=== PATIENT | female | born 1990 | race Caucasian/White ===

== ENCOUNTER 2025-01-07 09:56 | Outpatient (AMB) | payer OTHER, SELFPAY ==
--- NOTE | 2025-01-07 09:57 | A.OFFPC_ITS ---
Vital Signs 01/07/25 10:14 Height 5 ft 6 in Weight 187 lb 6 oz BMI 30.2 BP 118/66 Blood Pressure Location Rt brachial Position Sitting Respiration 12 Pulse 72 Pulse Source Pulse Oximeter Temp 97.1 F Temp Source Oral Pulse Oximetry (%) 99 Oxygen Delivery Method Room Air Intake Visit Reasons: est care/med refill Intake Note: new patient to establish care and patient also needs refill on meds. Stem Crusher Required: No Allergies ibuprofen [From Motrin] Allergy (Severe, Verified 01/07/25 10:28) Rash Medication List - Last Reconciled 01/07/25 by Stefanie Artis, [facility]- escitalopram oxalate mg PO DAILY lorazepam mg PO PRN tirzepatide (weight loss) (Zepbound) 2.5 mg subcut QWEEK Tobacco use date assessed: 01/07/25 Dental Screening Dental Screen Date: 01/07/25 Did you have a dental visit in the last 12 months?: Yes Did you have a dental problem in the last 6 months where you did not have access to dental care?: No Was dental information given to patient?: Patient has dentist HPI HPI Comments History of Present Illness Details 34 y/o f with obesity, LUDWIG, family hx of colon ca (Mgm), marijuana use surgery: nose surgery age 8 - mole removed family hx:mgm colon ca, dad complication of surgery; paternal grand parents do not know cause; denies DM or CVD social: 2 children, age 8 and 4, lives w/ and kids; home preschool Health Maintenance: PAP about 2 years , referred to [facility] phlebotomy services technician Tdap 2017 Flu declined Specialists: None History of Present Illness - The patient is a 34-year-old female pr esenting as a new patient, to [facility] care, for a CPE & mgmt of chronic conditions Previous PCP rohan - no records avail. - Diagnosed with anxiety and depression; medications include escitalopram and lorazepam, improving her condition. Does not have a counselor. Does not think this would be helpful. sparing ativan. meterman reviewed. - Obesity previously treated with Wegovy , patients switched to Zepbound due to insurance. - Allergic to ibuprofen, causes rash; us es acetaminophen instead. - Reports warts R middle toe and L thumb with moderate success with OTC liquid nitrogen, predominantly on thumb. Review of Systems - Respiratory: Denies cough, dyspnea - Cardiovascular: Denies chest pain, pal pitations - Gastrointestinal: Denies nausea, vomit ing - Dermatologic: Reports warts on right f oot and left thumb Physical Exam General: Well developed, well nourished, in no acute distress. Appears stated age. Head: Normocephalic, atraumatic. Eyes: Pupils are equal, round and reactive to light and accommodation. Conjunctivae are clear. Vision grossly normal. Ears: TMs clear AU, EACS WNL Nose: Patent, without discharge. Neck: Supple, no adenopathy or thyromegaly. Breast: Edu on SBE Lungs: Clear to auscultation bilaterally. No rales, rhonchi or wheeze noted. Good air flow in all burkett. Heart: Regular rate and rhythm. No murmurs, click, rubs or gallops are noted. Abdomen: Bowel sounds present in all quadrants. The abdomen is soft, nontender, with no masses or organomegaly noted. No hernias are noted. : Deferred. Reviewed recommendations for routine OPERATIONS SYSTEMS SPECIALIST Pulses: Peripheral pulses are equal and palpable bilaterally. Extremities: No clubbing, cyanosis nor edema is noted. Warts noted on the right foot and left thumb. Neurologic: Gait and station normal. Cranial Nerves 2-12 intact. Motor strength grossly symmetrical and intact. No sensory loss. Balance normal. Skin: No rashes, ulcers, or lesions noted. Turgor is good. Skin color is good. Hair and nails are without abnormalities. plantar wart R middle toe; wart left thumb pad Psych: Normal eye contact, affect and mood appropriate, and normal interactions. Patient is alert and appropriate to context. Results - Labs: Recent labs reported within past year 08/2024 for Wegovy initiation and follow-up; results normal as per patient report Discussion Notes I explained the current medication regimen for anxiety and depression, emphasizing the benefit the patient is experiencing with escitalopram and lorazepam. The patient?s allergy to ibuprofen was reviewed, advising to continue with acetaminophen as needed. Our discussion included the use of Zepbound instead of Wegovy, due to insurance changes. The potential issues and safety concerns regarding long-term use were noted. Concerning the warts, podiatry consultation was offered for professional removal. As for vaccinations, I addressed the flu vaccine?s importance in disease prevention while acknowledging the patient?s concerns. We also reviewed consent documentation and upcoming refills for medications. Assessment and Plan 1. Anxiety and Depression: Medication ef fective; continue escitalopram and lorazepam. Counseling not urgent but reconsider as lifestyle permits. 2. Obesity: Zepbound initiated due to in surance change; discuss potential side effects thoroughly. Transitioned care to appropriate prescriber. 3. Allergy to Ibuprofen: Acetaminophen s afe for symptom management. 4. Warts on Right Foot and Left Thumb: R efer to podiatry for stubborn warts unresponsive to OTC measures. 5. Health Maintenance: Ensure regular he alth assessments; verify Tdap status aligns with recommendations. Patient Instructions - Continue escitalopram and lorazepam as prescribed - Avoid using ibuprofen; acetaminophen m ay be used if needed - Consider podiatry appointment for wart removal - Follow-up with gynecology for Pap smea r - Await contact for Zepbound management follow-up with the referred prescriber Consent I discussed all pertinent risks, benefits, and alternatives regarding the continuation of Zepbound with the patient. She was informed of the potential relapse in weight without ongoing medication, and possible health risks over long-term use. Consent was obtained verbally, understanding the outlined management plan. Patient was informed and verbally consented to the use of an ambient scribe for clinic note documentation during this visit. [facility] Medical History (Updated 01/07/25 @ 10:40 by Stefanie Artis [facility]) Anxiety and depression No pertinent family history Surgical History (Updated 01/07/25 @ 10:22 by Martine Ruiz) No pertinent past surgical history Social History (Updated 01/07/25 @ 10:21 by Martine Ruiz) Household Members: Spouse and Children Both parents involved: No Caregiver staying overnight: No Housing: House Are you a primary auto care center manager to a significant other at home: Yes Do you presently have visiting nurse or other home services: No 75 years or older and lives alone: No Alcohol intake: current Alcohol intake frequency: a few times a month Alcohol type: wine Patient Tobacco Use Status: Never used Tobacco e-Cigarette/Vaping Use: Never Used Second Hand Smoke Exposure: No service: No Current occupational status: employed 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 1. Little interest or pleasure in doing things: not at all 2. Feeling down, depressed, or hopeless: several days 3. Trouble falling or staying asleep, or sleeping too much: not at all 4. Feeling tired or having little energy: not at all 5. Poor appetite or overeating: not at all 6. Feeling bad about yourself - or that you are a failure or have let yourself or your family down: not at all 7. Trouble concentrating on things, such as reading the newspaper or watching television: not at all 8. Moving or speaking so slowly that other people could have noticed. Or the opposite - being so fidgety or restless that you have been moving around a lot more than usual: not at all 9. Thoughts that you would be better off or of hurting yourself in some wa y: not at all Total score: 1 Depression Screening Interpretation: Negative Depression Screening Done: Yes 56144 - PHQ-9 Billing: Yes Source: Developed by Drs. Philip Bruno, Tomasa Gates, Tigre Alejo and colleagues, with an educational junaid from [employer]. Thrive Questionnaire Date Thrive assessed: 01/07/25 I am a: Patient What is your living situation today?: I have a steady place to live Within the past 12 months, did the food you bought not last and you didn't have the money to get more?: Never true Within the past 12 months, did you worry whether your food would run out before you got money to buy more?: Never true Do you have trouble paying for medicines?: No Do you have trouble getting transportation to medical appointments?: No Do you have trouble paying your heating and electricity bill?: No Do you have trouble taking care of your child, family member or friend?: No Do you have trouble with day-to-day activities such as bathing, preparing meals, shopping, managing finances, etc.?: No Are you currently unemployed and looking for a job?: No Are you interested in more education?: No THRIVE Score: 0 AUDIT C Alcohol Use Questionnaire (AUDIT-C) 1. How often do you have a drink containing alcohol?: Monthly or less 2. How many drinks containing alcohol do you have on a typical day when you are drinking?: 1 or 2 3. How often do you have six or more drinks on one occasion?: Less than monthly Total Score: 2 Score Reviewed/Action Taken: Yes LUDWIG-7 AMB Questionnaire LUDWIG-7 Date LUDWIG - 7 assessed: 01/07/25 Feeling nervous, anxious, or on edge: 1 = Several days Not being able to stop or control worryin = Several days Worrying too much about different things: 1 = Several days Trouble relaxin = Several days Being so restless that it is hard to sit still: 1 = Several days Becoming easily annoyed or irritable: 1 = Several days Feeling afraid as if something awful might happen: 0 = Not at all Total LUDWIG-7 score (0-4 normal; 5-9 mild; 10-14 moderate; 15-21 severe): 6 Source: Developed by Drs. Philip Bruno, Tomasa Gates, Tigre Alejo and colleagues, with an educational junaid from [employer]. LUDWIG-7 Assessment Billing LUDWIG-7 Assessment Tool: LUDWIG-7 Assessment 25430 Physical exam (Primary Care) Vital Signs: Last Vital Signs Temp 97.1 F 01/07/25 10:14 Pulse 72 01/07/25 10:14 Resp 12 01/07/25 10:14 BP 118/66 01/07/25 10:14 Pulse Ox 99 01/07/25 10:14 Oxygen Delivery Method Room Air 01/07/25 10:14 BMI result Body Mass Index 30.2 BMI Assessment/Plan discussion: High BMI High, discussed plan: lifestyle Tobacco/Smoking Status: Tobacco use Status Tobacco use date assessed 01/07/25 01/07/25 10:15 Patient Tobacco Use Status Never used Tobacco 01/07/25 10:21 e-Cigarette/Vaping Use Never Used 01/07/25 10:21 Depression Screening Interpretation: Negative Thrive Assessment: Date of Thrive Assessment Date Thrive assessed 12/23/24 01/07/25 09:57 Coding Level of Care Code New Pt Prev Care 18-39yr(96061 Diagnoses Encounter for general adult medical examination without abnormal findings Z00.00 BMI 30.0-30.9,adult Z68.30 Obesity (BMI 30.0-34.9) E66.811 LUDWIG (generalized anxiety disorder) F41.1 Marijuana use F12.90 Plantar wart of right foot B07.0 Additional Codes LUDWIG-7 Assessment Billing - LDUWIG-7 Assessment Tool: LUWDIG-7 Assessment 16639 ([id number]) PHQ-9 - 83341 - PHQ-9 Billing: Yes ([id number]) Assessment & Plan Assessment & Plan (1) Encounter for general adult medical examination without abnormal findings: Code(s): Z00.00 - Encounter for general adult medical examination without abnormal findings (2) BMI 30.0-30.9,adult: Code(s): Z68.30 - Body mass index [BMI] 30.0-30.9, adult (3) Obesity (BMI 30.0-34.9): Code(s): E66.811 - Obesity, class 1 (4) LUDWIG (generalized anxiety disorder): Code(s): F41.1 - Generalized anxiety disorder Category: Medical (5) Marijuana use: Code(s): F12.90 - Cannabis use, unspecified, uncomplicated Category: Medical (6) Plantar wart of right foot: Code(s): B07.0 - Plantar wart Category: Medical Plan . Orders: Referrals Podiatry Referral B07.0 - Plantar wart HOG RINGER Referral Z12.4 - Encounter for screening for malignant neoplasm of cervix Medications: New escitalopram oxalate 20 mg PO DAILY 90 tabs 2RF tirzepatide (weight loss) (Zepbound) for 4 weeks 2.5 mg (0.5 mL) subcut QWEEK 2 mL 0RF Patient Instructions: Health screenings for women You should visit your health care provider from time to time, even if you are healthy. The purpose of these visits is to: Screen for medical issues Assess your risk for future medical problems Encourage a healthy lifestyle Update vaccinations and other preventive care services Help you get to know your provider in case of an illness Information Even if you feel fine, you should still see your provider for regular checkups. These visits can help you avoid problems in the future. For example, the only way to find out if you have high blood pressure is to have it checked regularly. High blood sugar and high cholesterol levels also may not have any symptoms in the early stages. A simple blood test can check for these conditions. There are specific times when you should see your provider or receive specific health screenings. The [place] Preventive Services Task Force publishes a list of recommended screenings. Below are screening guidelines for women ages 18 to 39. BLOOD PRESSURE SCREENING Your blood pressure should be checked at least once every 3 to 5 years if: Your blood pressure is in the normal range (top number less than 120 mm Hg and bottom number less than 80 mm Hg) You don't have risk factors for high blood pressure Ask your provider if you need your blood pressure checked more often if: The top number is 120 to 129 mm Hg or the bottom number is 70 to 79 mm Hg You have diabetes, heart disease, kidney problems, are overweight, or have certain other health conditions You have a first-degree relative with high blood pressure You are Black You had high blood pressure during a If the top number is 130 mm Hg or greater or the bottom number is 80 mm Hg or greater, this is considered stage 1 hypertension. Schedule an appointment with your provider to learn how you can reduce your blood pressure. Watch for blood pressure screenings in your area. Ask your provider if you can stop in to have your blood pressure checked. BREAST CANCER SCREENING Experts do not agree about the benefits of breast self-exams in finding breast cancer or saving lives. Talk to your provider about what is best for you. A screening mammogram is not recommended for most women under age 40. Your provider may discuss and recommend mammograms, MRI scans, or ultrasounds if you have an increased risk for breast cancer, such as: A mother or sister who had breast cancer at a young age (most often starting screening earlier than the age the close relative was diagnosed) You carry a high-risk genetic marker CERVICAL CANCER SCREENING Cervical cancer screening should start at age 21 years unless your provider advises otherwise. After the first test: Women ages 21 through 29 should have a Pap test every 3 years. Exoprts do not agree on whether HPV testing is recommended for this age group. Women ages 30 through 65 should be screened with either a Pap test every 3 years or the HPV test every 5 years or both tests every 5 years (called cotesting ). Women who have been treated for precancer (cervical dysplasia) should continue to have Pap tests for 20 years after treatment or until age 65, whichever is longer. If you have had your uterus and cervix removed (total hysterectomy), and you have not been diagnosed with cervical cancer or precancer (high grade cervical neoplasia), you do not need cervical cancer screening. CHOLESTEROL SCREENING Cholesterol screening should begin at: Age 45 for women with no known risk factors for coronary heart disease Age 20 for women with known risk factors for coronary heart disease Repeat cholesterol screening should take place: Every 5 years for women with normal cholesterol levels More often if changes occur in lifestyle (including weight gain and diet) More often if you have diabetes, heart disease, kidney problems, or certain other conditions DIABETES SCREENING You should be screened for diabetes starting at age 35 and then repeated every 3 years if you have no risk factors for diabetes. Screening may need to start earlier and be repeated more often if you have other risk factors for diabetes, such as: You have a first degree relative with diabetes. You are overweight or have obesity. You have high blood pressure, prediabetes, or a history of heart disease. Screening for diabetes should be done if you are planning to become and you are overweight and have other risk factors such as high blood pressure. DENTAL EXAM Go to the dentist once or twice every year for an exam and cleaning. Your dentist will evaluate if you need more frequent visits. EYE EXAM Have an eye exam every 5 to 10 years before age 40. If you have vision problems, have an eye exam every 2 years or more often if recommended by your provider. You should have an eye exam that includes an examination of your retina (back of your eye) at least every year if you have diabetes. IMMUNIZATIONS Commonly needed vaccines include: Flu shot: get one every year. COVID-19 vaccine: ask your provider what is best for you. Tetanus-diphtheria and acellular pertussis (Tdap) vaccine: have one at or after age 19 as one of your tetanus-diphtheria vaccines if you did not receive it as an adolescent. Tetanus-diphtheria: have a booster (or Tdap) every 10 years. Varicella vaccine: receive 2 doses if you never had chickenpox or the varicella vaccine. Hepatitis B vaccine: receive 2, 3, or 4 doses, depending on your exact circumstances. Measles, mumps, and rubella (MMR) vaccine: receive 1 to 2 doses if you are not already immune to MMR. Your provider can tell you if you are immune. Ask your provider about the human papillomavirus (HPV) vaccine if: You have not received the HPV vaccine in the past You have not completed the full vaccine series (you should catch up on this shot) Ask your provider if you should receive other immunizations if you have certain health problems that increase your risk for some diseases such as pneumonia. INFECTIOUS DISEASE SCREENING Women who are sexually active should be screened for chlamydia and gonorrhea up until age 25. Women 25 years and older should be screened for chlamydia and gonorrhea if at high risk. Screening for hepatitis C: All adults ages 18 to 79 should get a one-time test for hepatitis C. people should be screened at every . Screening for human immunodeficiency virus (HIV): All people ages 15 to 65 should get a one-time test for HIV. Depending on your lifestyle and medical history, you may also need to be screened for infections such as syphilis and HIV, as well as other infections. PHYSICAL EXAM All adults should visit their provider from time to time, even if they are healthy. The purpose of these visits is to: Screen for disease Assess your risk of future medical problems Encourage a healthy lifestyle Update your vaccinations and other preventive care services Maintain a relationship with a provider in case of an illness Your height, weight, and BMI should be checked at every exam. During your exam, your provider may ask you about: Depression and anxiety Diet and exercise Alcohol and tobacco use Safety issues, such as using seat belts, smoke detectors, and intimate partner violence Your medicines and risk for interactions SKIN SELF-EXAM Your provider may check your skin for signs of skin cancer, especially if you're at high risk, such as if you: Have had skin cancer before Have close relatives with skin cancer Have a weakened immune system OTHER SCREENING Talk with your provider about colon cancer screening if you have a strong family history of colon cancer or polyps, or if you have had inflammatory bowel disease or polyps yourself. Routine bone density screening of women under 40 is not recommended. Walk-In Care (Urgent Care): We Make it Easy Walk-in for urgent medical issues such as: ? Seasonal Allergies ? Insect Bites ? Cough ? Diarrhea ? Acute Asthma Attacks ? Back, Knee or Joint Pain ? Ear Infection ? Fever without a Rash ? Headaches ? Nausea ? [place] [facility], Rash or Skin Irritation ? Sore Throat ? Sports Physicals ? Vomiting Most insurances are accepted. Patients do not need to be part of the [facility] to seek care at the walk-in clinic. Locations [facility] [address], [place] [address] ? [phone] [facility] in [place] provides services to ages 18 and over. Open Tuesday-Tuesday: 8 a.m. to 5 p.m. and Tuesday: 9 a.m. to 3 p.m.* *Hours may vary due to staffing availability. To confirm Walk-In Care hours in [place], please call [phone]. [address] [place] [address] ? [phone] [facility] in [place] provides services to ages 12 and over. Open Tuesday-Tuesday: 8 a.m. to 5 p.m. Hours may vary due to staffing availability. To confirm Walk-In Care hours in [place], please call [phone]. LABORATORY SERVICES: [facility] ? Primary Location [address] [place] [address] Tuesday through Tuesday 6:00 AM ? 5:00 PM Tuesday 7:00 AM ? 11:00 AM* [phone] The [facility] is centrally located near the front entrance of the [facility] for easy outpatient access. Convenient parking is provided for outpatients. *Hours may vary due to staffing availability. To confirm Laboratory hours for any location, please call [phone]. Offsite Location For your convenience, we offer offsite laboratory draw stations at the following locations: [address] [place] [address] ? [address], [address] Tuesday through Tuesday 7:30 AM ? 1:00 PM* [phone] *Hours may vary due to staffing availability. To confirm Laboratory hours for any location, please call [phone]. [place] ? [address] Tuesday through Tuesday 6:00 AM ? 3:30 PM* Tuesday 6:30 AM ? 3 PM* [phone] *Hours may vary due to staffing availability. To confirm Laboratory hours for an y location, please call [phone] [place] [address] Tuesday through Tuesday 7:30 AM ? 4:00 PM* [phone] *Hours may vary due to staffing availability. To confirm Laboratory hours for any location, please call [phone] [place] [address] Tuesday through 9:00 AM ? 4:00 PM* *Hours may vary due to staffing availability. To confirm Laboratory hours for any location, please call [phone]. Appointments are not necessary. Walk-ins are welcome. Like all the departments throughout the [facility], our Lab undergoes frequent reviews to ensure the quality and accuracy of test results, and our staff takes special pride in its status as a nationally accredited facility. Patient Portal: ONE PATIENT. ONE RECORD. BETTER CARE. [facility] has a fully integrated, cutting- edge mobile electronic health information system that has revolutionized the way we care for our patients and manage our organization. This system improves communication and coordination enabling us to provide safe, higher-quality care, and an overall positive experience for staff and patients. Our first priority, as always, is to deliver the highest quality care possible. The system is running in the background supporting that priority. This portal is for all [facility] services and practices. If you are experiencing any technical difficulties with enrolling or logging into the Patient Portal please complete the [facility] Patient Portal Technical Support Form. [facility] now offers a new secure on-line interactive tool for patients to review their health information ? ?Patient Portal. This interactive web portal will enable patients and their families to take an active role in their care by providing easy, secure access to their health information via the internet. The Patient Portal provides patients with instant access to their health information, including laboratory results, medications, allergies, demographic information, visit history, and more. In addition to managing their own care, parents and health care proxies with authorized consent will appreciate the ability to access the records of those individuals for whom they provide care. Please note: if you wish to gain access (Proxy) to another patient?s portal, you will be required to come to the Medical Records Department in person at [facility]. Both the patient giving proxy access and the proxy will need to provide photo identification and complete the appropriate authorization. The Patient Portal also allows track their appointments online. The [facility] Patient Portal also saves patients time by allowing them to submit updates to their demographic and contact information prior to their visits. Portal email notifications will also alert patients to any new activity on their portal, such as test results and new appointments. In order to initially enroll in the [facility] Patient Portal, you will need to enter some required information including the following: * your [facility] Medical Record number * your personal home email address * name * date of Please note: In order to enroll in the [facility] Patient Portal, we need to have your email address on file in your electronic medical record. ?The email address needs to be specific for one person (yourself) in order for your Portal enrollment to be successful. ?You can update your email address in person with our Registration staff when you are registering for a hospital visit. ?Otherwise, you will need to come to the Health Information Management (Medical Records) Department at [facility]. ?We are open from Tuesday ? Tuesday from 7:30 a.m. ? 4:30 p.m. ?You will be required to present a photo id. Once you have successfully enrolled in the Patient Portal, you will receive a one-time user id and password for the Portal, sent to your email address. ?This will allow you to log into the Patient Portal within 99 hrs and reset your own logon id and password, and define personal security questions. ?Once your permanent login and password have been set, you can log into the [facility] Patient Portal at any time via the blue button above or from the Portal Logon button on any page of the [facility] website. [facility] and [facility] encourage all of our patients to enroll in Patient Portal as it presents a valuable opportunity for patients and their families to actively participate in their care and stay healthy Welcome to [facility]. ?We look forward to working with you.
[2025-01-07 10:14] VITALS: BP 118/66; PULSE 72; RESP 12; TEMP 36.2; O2SAT 99; BMI 30.2
--- OUTSIDE RECORDS SUMMARY | 2025-01-07 11:16 | XMS_ITS | Clinical Summary ---
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 07/27/2024 Active hydrOXYzine HCL (ATARAX) 25 mg tablet Take 1 Tablet by mouth at bedtime as needed for Anxiety for up to 30 days. 12/16/2023 Active naproxen (NAPROSYN) 500 mg tablet Take 1 Tablet by mouth 2 times daily (with meals) for 14 days. 01/16/2024 Active semaglutide (Wegovy) 1.7 mg/0.75 mL injection pen Inject 1.7 mg into the skin once a week. 07/27/2024 Active gabapentin (NEURONTIN) 100 mg capsule Take 1 Capsule by mouth at bedtime as needed (pain). Active LORazepam (ATIVAN) 1 mg tabletIndicatio ns:Generalized anxiety disorder Take 1 tablet (1 mg total) by mouth every 6 (six) hours if needed for anxiety. Max Daily Amount: 4 mg 20 tablet 09/10/2024 Active semaglutide (WEGOVY) 2.4 mg/0.75 mL injection pen Inject 2.4 mg under the skin every 7 (seven) days. 9 mL 1 09/24/2024 Active Active Problems Problem Noted Date Diagnosed Date HSV-1 (herpes simplex virus 1) infection 020 Overview (08/27/2024): Has oral lesion today's ip visit treatment given 11/20/18 Generalized anxiety disorder 05/08/2018 Degenerative disc disease, lumbar 02/28/2017 Immunizations Name Administration Dates Next Due Tdap Tetanus diptheria acell ular pertussis (Boostrix; Adacel) 7yo and older 03/12/2020,10/27/2016 Surgical History Surgery Date Site/Laterality Comments OTHER SURGICAL HISTORY PROCEDURE: DENIES PREVIOUS SURGERY Family History Medical History Relation Name Comments No Known Problems Daughter Francoise Other: Appendicitis Father Stroke Maternal Grandfather Alcohol abuse Paternal Grandfather Obesity Sister No Known Problems Son Adolph Relation Name Status Comments Daughter Francoise Alive Father Maternal Grandfather Maternal Grandmother Alive Mother Alive Paternal Grandfather Paternal Grandmother Sister Alive Son Adolph Alive Social History Tobacco Use Types Packs/Day Years Used Date Smoking Tobacco: Never Smokeless Tobacco: Never Tobacco Cessation:Counseling Given: Not Answered Alcohol Use Standard Drinks/Week Comments Yes 0 (1 standard drink = 0.6 oz pur e alcohol) Comments Unknown Sex and Gender Information Value Date Recorded Sex Assigned at Not on file Legal Sex Female 12:54 AM EST Gender Identity Not on file Sexual Orientation Not on file Obstetrics History Last Filed Vital Signs Vital Sign Reading Time Taken Comments Blood Pressure 112/80 09/10/2024 8:11 AM EST Pulse 64 09/10/2024 8:11 AM EST Temperature 36.3 ??C (97.4 ??F) 09/10/2024 8:11 AM ES T Respiratory Rate - - Oxygen Saturation - - Inhaled Oxygen Concentration - - Weight 86.1 kg (189 lb 12.8 oz) 09/10/2024 8:11 AM EST Height 167.6 cm (5' 6 ) 09/10/2024 8:11 AM EST Body Mass Index 30.63 09/10/2024 8:11 AM EST Plan of Treatment Health Maintenance Due Date Last Done Comments Hepatitis B Vaccines (1 of 3 - 19+ 3-dose series) 2008 Hepatitis C Screening 10/10/2022 Social Influencers of Health Screening 10/10/2022 COVID-19 Vaccine (1 - 2023-2 5 season) 2024 Influenza Vaccine (#1) 2024 Cervical Cancer Screening: HPV 11/20/2024 11/20/2019 Depression Screening 08/24/2025 08/24/2024 Cholesterol Screening (Lipid Panel) 08/24/2029 08/24/2024, 08/24/2024 DTaP,Tdap,and Td Vaccines (3 - Td or Tdap) 03/12/2030 03/12/2020, 10/27/2016 HIV Screening Completed 11/20/2019 HIB Vaccines Aged Out No longer eligi ble based on patient's age to complete this topic HPV Vaccines Aged Out No longer eligi ble based on patient's age to complete this topic Hepatitis A Vaccines Aged Out No long er eligible based on patient's age to complete this topic IPV Vaccines Aged Out No longer eligi ble based on patient's age to complete this topic MMR Vaccines Aged Out No longer eligi ble based on patient's age to complete this topic Meningococcal ACWY Vaccine Aged Out N o longer eligible based on patient's age to complete this topic Meningococcal B Vacine Aged Out No lo nger eligible based on patient's age to complete this topic Pneumococcal Vaccine: Pediatrics (0 to 5 Years) and At-Risk Patients (6 to 64 Years) Aged Out No longer eligible b ased on patient's age to complete this topic RSV Immunization Patients Under 20 months Aged Out No longer eligible b ased on patient's age to complete this topic Varicella Vaccines Aged Out No longer eligible based on patient's age to complete this topic Procedures Procedure Name Priority Date/Time Associated Diagnosis Comments DEPRESSION SCREENING Routine 08/24/2024 LIPID PANEL Routine 08/24/2024 HPV Routine 11/20/2019 HIV SCREENING Routine 11/20/2019 from Last 3 Months or Most Recently Relevant to Health Maintenance Results * Depression Screening (08/24/2024) Depression Screening abstracted us Historical Provider HEALTH MAINTENANCE Final Result * Lipid panel (08/24/2024) Pathologist [facility] LDL/HDL Ratio 3 0 - 4 Triglycerides 78 0 - 150 mg/dL Cholesterol 167 0 - 200 mg/dL HDL 62 >=40 mg/dL LDL Cholesterol 90 0 - 100 mg/dL Blood Venous blood specimen / Unknown Historical Provider LAB BLOOD ORDERABLES Sandrine l Result * Cervical Cancer Screening: HPV (11/20/2019) [facility] Cervical Cancer Screening: HPV negative,a bstracted Historical Provider HEALTH MAINTENANCE Final Result * HIV Screening (11/20/2019) [facility] HIV Screening abstracted Historical Provider HEALTH MAINTENANCE Final Result from Last 3 Months or Most Recently Relevant to Health Maintenance Insurance [facility] Advance Directives Documents on File Type Date Recorded 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
== END 2025-01-07 10:50 | disposition home or self-care (01) ==
PROVIDERS: PCP Nurse Practitioner Family; Visit Provider Nurse Practitioner Family
DX: Z00.00 Encounter for general adult medical examination without abnormal findings (principal); Z68.30 Body mass index [BMI] 30.0-30.9, adult; E66.811 Obesity, class 1; F41.1 Generalized anxiety disorder; F12.90 Cannabis use, unspecified, uncomplicated; B07.0 Plantar wart

== ENCOUNTER → 2025-01-07 09:56 | Outpatient (BNVA) | payer OTHER, SELFPAY | PROVIDERS: PCP Nurse Practitioner Family; Visit Provider Nurse Practitioner Family | DX: Z00.00 Encounter for general adult medical examination without abnormal findings (principal); E66.811 Obesity, class 1; Z68.30 Body mass index [BMI] 30.0-30.9, adult; F41.1 Generalized anxiety disorder; F12.90 Cannabis use, unspecified, uncomplicated; B07.0 Plantar wart; Z71.3 Dietary counseling and surveillance | CPT/HCPCS: 96127; 99385 ==

== ENCOUNTER 2025-02-04 14:16 | Outpatient (AMB) | payer OTHER, SELFPAY ==
--- NOTE | 2025-02-04 14:20 | A.OFFPC_ITS ---
Vital Signs 02/04/25 14:25 Height 5 ft 6 in Weight 187 lb 2 oz BMI 30.2 BP 94/64 Blood Pressure Location Lt brachial Position Sitting Respiration 12 Pulse 84 Pulse Source Pulse Oximeter Pulse Oximetry (%) 98 Oxygen Delivery Method Room Air Intake Visit Reasons: [address] toro - zia care/zepbound Intake Note: New patient visit Allergies ibuprofen [From Motrin] Allergy (Severe, Verified 02/04/25 14:23) Rash Medication List - Last Reconciled 02/04/25 by Emily Angulo MD escitalopram oxalate 20 mg PO DAILY lorazepam mg PO PRN tirzepatide (weight loss) (Zepbound) 2.5 mg (0.5 mL) subcut QWEEK Tobacco use date assessed: 02/04/25 Dental Screening Dental Screen Date: 01/07/25 HPI HPI Comments History of Present Illness Details 34 y/o f with obesity, generalized fanxi ety, family hx of colon ca (Mgm), presenting for follow up Anxiety/depression: stable on escitalopram and lorazepam, improving her condition. Does not have a counselor. Does not think this would be helpful. s paring ativan. 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 Obesity previously treated with Wegovy was up to 2.4, patients switched to Zepbound due to insurance just completed 4 injections of 2.5 will increase to 5mg Reports warts R middle toe and L thumb with moderate success with OTC liquid nitrogen, predominantly on thumb. Referral placed to dermatology for ongoing treatment ROS CONSTITUTIONAL: Denies weight loss, fever and chills. HEENT: Denies changes in vision and hearing. RESPIRATORY: Denies SOB and cough. CV: Denies palpitations and CP GI: Denies abdominal pain, nausea, vomiting and diarrhea. : Denies dysuria and urinary frequency. MSK: Denies new myalgia and joint pain. SKIN: Denies rash and pruritus. NEUROLOGICAL: Denies headache PSYCHIATRIC: Denies recent changes in mood. PHYSICAL EXAM: GENERAL: Alert and oriented x 3. NAD EYES: EOMI. Anicteric. HENT: Moist mucous membranes. No scleral icterus. No cervical lymphadenopathy. LUNGS: Clear to auscultation bilaterally. CARDIOVASCULAR: Regular rate and rhythm. No murmur. No JVD. ABDOMEN: Soft, non-tender +bs EXTREMITIES: No edema. Non-tender. SKIN: scattered infrequent nevi, ak and viral wart NEUROLOGIC: No focal neurological deficits. CN II-XII grossly intact PSYCHIATRIC: Cooperative. Appropriate mood and affect [facility] Medical History Anxiety and depression No pertinent family history Surgical History No pertinent past surgical history Social History Household Members: Spouse and Children Both parents involved: No Caregiver staying overnight: No Housing: House Are you a primary health care legal assistant to a significant other at home: Yes Do you presently have visiting nurse or other home services: No 75 years or older and lives alone: No Alcohol intake: current Alcohol intake frequency: a few times a month Alcohol type: wine Patient Tobacco Use Status: Never used Tobacco e-Cigarette/Vaping Use: Never Used Second Hand Smoke Exposure: No Use of substances other than those prescribed or required for medical reasons: No service: No Current occupational status: employed 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 Current occupational exposures/hazards: No Cognitive needs: No Hearing needs: No Vision needs: No Questionnaire Thrive Questionnaire Date Thrive assessed: 12/23/24 I am a: Patient What is your living situation today?: I have a steady place to live Within the past 12 months, did the food you bought not last and you didn't have the money to get more?: Never true Within the past 12 months, did you worry whether your food would run out before you got money to buy more?: Never true Do you have trouble paying for medicines?: No Do you have trouble getting transportation to medical appointments?: No Do you have trouble paying your heating and electricity bill?: No Do you have trouble taking care of your child, family member or friend?: No Do you have trouble with day-to-day activities such as bathing, preparing meals, shopping, managing finances, etc.?: No Are you currently unemployed and looking for a job?: No Are you interested in more education?: No Please select the resources that you would like help with: None Currently or been in a relationship where the following occur: No concerns reported THRIVE Score: 0 LUDWIG-7 AMB Questionnaire LUDWIG-7 Date LUDWIG - 7 assessed: 01/07/25 Source: Developed by DrsDevi Bruno, Tomasa Gates, Tigre Alejo and colleagues, with an educational junaid from [employer]. Physical exam (Primary Care) Vital Signs: Last Vital Signs Pulse 84 02/04/25 14:25 Resp 12 02/04/25 14:25 BP 94/64 02/04/25 14:25 Pulse Ox 98 02/04/25 14:25 Oxygen Delivery Method Room Air 02/04/25 14:25 BMI result Body Mass Index 30.2 Tobacco/Smoking Status: Tobacco use Status Tobacco use date assessed 02/04/25 02/04/25 14:24 Patient Tobacco Use Status Never used Tobacco 02/04/25 14:25 e-Cigarette/Vaping Use Never Used 02/04/25 14:25 Thrive Assessment: Date of Thrive Assessment Date Thrive assessed 12/23/24 02/04/25 14:22 Currently or been in a relationship where the following occur: No concerns reported Coding Level of Care Code Est Pt Level 4 (67365) Diagnoses Obesity (BMI 30.0-34.9) E66.811 Viral warts, unspecified type B07.9 Viral wart type: unspecified viral wart LUDWIG (generalized anxiety disorder) F41.1 Assessment & Plan Assessment & Plan (1) Obesity (BMI 30.0-34.9): Code(s): E66.811 - Obesity, class 1 Category: Medical Plan: Increase zepbound 5 mg weekly. She will update me in 4 weeks RE progress (2) Viral wart: Code(s): B07.9 - Viral wart, unspecified Category: Medical Qualifiers: Viral wart type: unspecified viral wart Qualified Code(s): B07.9 - Viral wart, unspecified Plan: referral placed to dermatology (3) LUDWIG (generalized anxiety disorder): Code(s): F41.1 - Generalized anxiety disorder Category: Medical Plan: stable on current regimen Orders: Referrals Dermatology Referral B07.9 - Viral wart, unspecified, L57.0 - Actinic keratosis Medications: New Zepbound (tirzepatide (weight loss)) 5 mg (0.5 mL) subcut QWEEK 2 mL 1RF NS tretinoin 0.1% 1 appl topical BEDTIME 45 grams 1RF Discontinued tirzepatide (weight loss) (Zepbound) for 4 weeks Discontinued Reason: Doctor's Order 2.5 mg (0.5 mL) subcut QWEEK 2 mL 0RF
[2025-02-04 14:25] VITALS: BP 94/64; PULSE 84; RESP 12; O2SAT 98; BMI 30.2
--- OUTSIDE RECORDS SUMMARY | 2025-02-04 16:07 | XMS_ITS | Clinical Summary ---
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 Name Role Phone Unavailable Primary Care Provider [...] Final Result * Lipid panel (08/24/2024) Pathologist [facility] LDL/HDL Ratio 3 0 - 4 Triglycerides 78 0 - 150 mg/dL Cholesterol 167 0 - 200 mg/dL HDL 62 >=40 mg/dL LDL Cholesterol 90 0 - 100 mg/dL Blood Venous blood specimen / Unknown Historical Provider LAB BLOOD ORDERABLES Sandrine l Result * Cervical Cancer Screening: HPV (11/20/2019) [facility] Cervical Cancer Screening: HPV negative,a bstracted Historical Provider HEALTH MAINTENANCE Final Result * HIV Screening (11/20/2019) [facility] HIV Screening abstracted Historical Provider HEALTH MAINTENANCE Final Result from Last 3 Months or Most Recently Relevant to Health Maintenance Insurance [facility] [employer] Advance Directives Documents on File Type Date Recorded 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
== END 2025-02-04 14:49 | disposition home or self-care (01) ==
LOC: HO.HMCFM 14:16
PROVIDERS: PCP Internal Medicine; Visit Provider Internal Medicine
DX: B07.9 Viral wart, unspecified (principal); F41.1 Generalized anxiety disorder; E66.811 Obesity, class 1; Z68.30 Body mass index [BMI] 30.0-30.9, adult

== ENCOUNTER → 2025-02-04 14:16 | Outpatient (BNVA) | payer OTHER, SELFPAY | PROVIDERS: PCP Nurse Practitioner Family; Visit Provider Internal Medicine | DX: E66.811 Obesity, class 1 (principal); B07.9 Viral wart, unspecified; F41.1 Generalized anxiety disorder; L57.0 Actinic keratosis; Z68.30 Body mass index [BMI] 30.0-30.9, adult | CPT/HCPCS: 99212 ==

== ENCOUNTER 2025-04-25 10:38 | Outpatient (AMB) | payer OTHER, SELFPAY ==
--- NOTE | 2025-04-25 10:39 | A.OFFVIS_ITS ---
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 Doing well with no montessori lead teacher concerns. She reports bleeding every couple of weeks for the last 6 months and has low libido. Currently is sexually active with . She denies vaginal itching or irritation. STI screening offered; she accepts. She tries to eat healthy and stays active with exercise. On Zepbound. Denies family history of breast, ovarian or colon cancer. Last pap smear 2022, negative. [facility] Medical History Abnormal uterine bleeding (AUB) Anxiety and depression No pertinent family history Surgical History No pertinent past surgical history Family History Maternal Grandmother Colon cancer Social History Household Members: Spouse and Children Both parents involved: No Caregiver staying overnight: No Housing: House Are you a primary resident care director to a significant other at home: Yes Do you presently have visiting nurse or other home services: No 75 years or older and lives alone: No Alcohol intake: current Alcohol intake frequency: a few times a month Alcohol type: wine Patient Tobacco Use Status: Never used Tobacco e-Cigarette/Vaping Use: Never Used Second Hand Smoke Exposure: No service: No Current occupational status: employed 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 Current occupational exposures/hazards: No Cognitive needs: No Hearing needs: No Vision needs: No Female Reproductive History Menstrual Date of last menstrual period: 04/05/25 control method: none Total pregnancies: 3 Full term: 2 Number of Living Children: 2 Ab induced: 1 Date of last pap smear: 11/21/19 (neg pap and hpv) Review of Systems Const All systems reviewed & are unremarkable except as noted in HPI and below Reports as per HPI Eyes Reports no additional complaints ENT Reports no additional complaints Card Reports no additional complaints Resp Reports no additional complaints GI Reports as per HPI and Reports no additional complaints Reports as per HPI Musc Reports no additional complaints Skin/Breast Reports as per HPI Neuro Reports no additional complaints Psych Reports no additional complaints Endo Reports no additional complaints Adrian/Lymph Reports no additional complaints Aller/Immun Reports no additional complaints Physical Exam Vital Signs: Last Vital Signs BP 100/62 04/25/25 10:40 BMI result Body Mass Index 29.0 Const General: cooperative, healthy appearing, no acute distress, well developed and alert Orientation/consciousness: patient oriented x3 HEENT Head: Yes normal to inspection Eyes General: appearance normal, both eyes and all related structures Neck Neck: Yes normal visual inspection Thyroid: Thyroid normal Chest Chest palpation & inspection: normal inspection of the chest and other (no puckering, dimpling, peau de orange, retraction, discharge, masses) Breast/axilla inspection: normal inspection of the breasts Breast/axilla palpation: normal palpation of the breasts Resp Effort & Inspection: normal respiratory effort GI Inspection: Yes normal to inspection Palpation (GI): Soft to palpation Rectal Exam - Female: deferred General: Yes bladder normal to palpation External Female Exam: normal external appearance and normal appearance of the urethra Speculum Exam - Vagina: normal appearance of the vagina, normal palpation and normal vaginal discharge Speculum Exam - Cervix: normal appearance of the cervix and normal palpation Bimanual exam- vagina & uterus: normal bimanual exam, normal palpation, uterine size normal, bladder normal to palpation, normal palpation and non-tender Bimanual Exam- Adnexa, other: no masses Skin General skin exam: no rashes or lesions noted Rashes: no rashes Neuro General: patient oriented x3 Cognition (Neuro): normal cognition Extrem General: Yes normal to inspection Psych Attitude: cooperative Thought process: Normal thought process present Assessment & Plan Assessment & Plan (1) Abnormal uterine bleeding (AUB): Code(s): N93.9 - Abnormal uterine and vaginal bleeding, unspecified Category: Medical Plan: Workup for abnormal uterine bleeding to include lab work, pelvic ultrasound, endometrial biopsy. Consider a Mirena IUD for treatment options. Schedule follow up for results appointment combined with EMB. Preprocedure planning for EMB to include eating and drinking taking 2 Tylenol 1 hour before procedure. Total time I personally spent on visit and management today: ?20 minutes. Time spent included review of pertinent office notes in the electronic health record; review of laboratory and imaging results; review of personal family medical history; performing physical exam; discussing diagnosis and plan of care with the patient; documenting the encounter in the EMR. The patient expressed understanding and agreement with the plan of care. All of her questions and concerns were addressed to the best of my ability. (2) Encounter for well woman exam with routine gynecological exam: Code(s): Z01.419 - Encounter for gynecological examination (general) (routine) without abnormal findings Category: Medical Plan: Discussed: Current recommendations for pap smears per ASCCP guidelines. Breast awareness and periodic breast exams. Maintain a healthy lifestyle including a well balanced diet and routine exercise. Patient verbalizes understanding and agrees to the plan of care. She was given opportunity to ask questions and all questions were answered to the best of my ability. RTO in one year for annual montessori lead teacher examination. This note is constructed using voice recognition software. While every effort has been made to ensure accuracy, manager telecom errors may have been included. (3) Decreased libido: Code(s): R68.82 - Decreased libido Plan Discussed: Couples counseling, time management, relationship concerns, multifactorial factors including medical and physical. Informed podcast for psychotherapy, National speaker on topics. The patient expressed understanding and agreement with the plan of care. All of her questions and concerns were addressed to the best of my ability. Orders: Orders US pelvic and transvaginal Today N93.9 - Abnormal uterine and vaginal bleeding, unspecified Complete Blood Count no Diff Today N93.9 - Abnormal uterine and vaginal bleeding, unspecified CT NG by PCR Today N93.9 - Abnormal uterine and vaginal bleeding, unspecified HPV High risk Today N93.9 - Abnormal uterine and vaginal bleeding, unspecified, Z01.419 - Encounter for gynecological examination (general) (routine) without abnormal findings Pap Smear Today N93.9 - Abnormal uterine and vaginal bleeding, unspecified, Z01.419 - Encounter for gynecological examination (general) (routine) without abnormal findings HCG Quantitative Today O20.0 - Threatened Thyroid Stimulating Hormone Today N92.1 - Excessive and frequent menstruation with irregular cycle, N93.9 - Abnormal uterine and vaginal bleeding, unspecified Bacterial Vaginosis Panel Today N93.9 - Abnormal uterine and vaginal bleeding, unspecified Coding Level of Care Code New Pt Level 2 (13390) New Pt Prev Care 18-39yr(63326 Diagnoses Abnormal uterine bleeding (AUB) N93.9 Encounter for well woman exam with routine gynecological exam Z01.419 Decreased libido R68.82
[2025-04-25 10:40] VITALS: BP 100/62; BMI 29.0
--- OUTSIDE RECORDS SUMMARY | 2025-04-25 12:07 | XMS_ITS | Clinical Summary ---
Author Organization [facility] [address] [facility] Address [address] [place] [address] Phone Care Team Providers Care Nut Former Name Role Phone Unavailable Primary Care Provider [...] 63 09/10/2024 8:11 AM EST Temperature 36.3 C (97.4 F) 09/10/2024 8:11 AM EST Respiratory Rate - - Oxygen Saturation - [...] Vaccine (1 - 2023-2 5 season) 2024 Cervical Cancer Screening: HPV 11/20/2024 11/20/2019 Influenza Vaccine (Season Ended) 2025 Depression Screening 08/24/2025 08/24/2024 Cholesterol Screening (Lipid [...] age to complete this topic Meningococcal B Vaccine Aged Out No l onger eligible based on patient's age to complete [...] * Depression Screening (08/24/2024) Depression Screening abstracted Historical Provider MD HEALTH MAINTENANCE Final Result * Lipid panel (08/24/2024) [facility] LDL/HDL Ratio 3 0 - 4 Triglycerides 78 0 - 150 mg/dL Cholesterol 167 0 - 200 mg/dL HDL 62 >=40 mg/dL LDL Cholesterol 90 0 - 100 mg/dL Blood Venous blood specimen / Unknown Historical Provider LAB BLOOD ORDERABLES Sandrine l Result * Cervical Cancer Screening: HPV (11/20/2019) [facility] Cervical Cancer Screening: HPV negative,a bstracted Historical Provider HEALTH MAINTENANCE Final Result * HIV Screening (11/20/2019) [facility] HIV Screening abstracted Historical Provider HEALTH MAINTENANCE Final Result from Last 3 Months or Most Recently Relevant to Health Maintenance Insurance [facility] [place] [address] Advance Directives Documents on File Type Date Recorded 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
== END 2025-04-25 11:41 | disposition home or self-care (01) ==
LOC: HO.HWS 10:38
PROVIDERS: PCP Internal Medicine; Visit Provider Advanced Practice Midwife
DX: Z01.419 Encounter for gynecological examination (general) (routine) without abnormal findings (principal); N93.9 Abnormal uterine and vaginal bleeding, unspecified; R68.82 Decreased libido
CPT/HCPCS: 99212; 99385; 99459

== ENCOUNTER 2025-04-25 10:38 | Outpatient (REF) | payer OTHER, SELFPAY ==
[2025-04-25 20:22] LABS: Bacterial Vaginosis PCR NEGATIVE (Negative); Candida Group PCR NOT DETECTED (Not Detect); Candida glab krusei PCR NOT DETECTED (Not Detect); Trichomonas vaginalis PCR NOT DETECTED (Not Detect)
[2025-05-02 10:53] LABS: HPV Genotype 16 Negative (Negative); HPV Genotype 18 Negative (Negative); HPV High Risk Negative (Negative)
== END 2025-04-25 10:39 | disposition home or self-care (01) ==
LOC: HO.LNP 10:38
PROVIDERS: PCP Internal Medicine; Visit Provider Advanced Practice Midwife
DX: Z01.419 Encounter for gynecological examination (general) (routine) without abnormal findings (principal); N93.9 Abnormal uterine and vaginal bleeding, unspecified; N92.1 Excessive and frequent menstruation with irregular cycle; R68.82 Decreased libido
CPT/HCPCS: 81515; 87626; 88175; 99212; 99385

== ENCOUNTER 2025-04-25 11:20 | Outpatient (REF) | payer OTHER, SELFPAY ==
[2025-04-25 12:30] LABS: Hematocrit 41.8 % (37.0-47.0); Hemoglobin 14.5 g/dl (12.0-16.0); Mean Corpuscular HGB Conc 34.7 g/dl (31.0-35.0); Mean Corpuscular Hemoglobin 30.9 pg (27.0-33.0); Mean Corpuscular Volume 88.9 fL (80.0-98.0); Mean Platelet Volume 11.2 fL (9.4-12.3); Platelet Count 281 X10*3/uL (160-400); Red Cell Distribution Width 12.4 % (11.0-16.0); White Blood Count 6.3 X10*3/uL (4.8-10.8)
[2025-04-25 13:16] LABS: Thyroid Stimulating Hormone 1.26 uIU/mL (0.32-4.0)
[2025-04-25 21:28] LABS: CT PCR NOT DETECTED (Not Detect.); NG PCR NOT DETECTED (Not Detect.)
== END 2025-04-25 11:21 | disposition home or self-care (01) ==
LOC: HO.LAB 11:20
PROVIDERS: PCP Internal Medicine; Visit Provider Advanced Practice Midwife
DX: N93.9 Abnormal uterine and vaginal bleeding, unspecified (principal); N92.1 Excessive and frequent menstruation with irregular cycle
CPT/HCPCS: 84443; 85027; 87491; 87591

== ENCOUNTER 2025-05-31 13:08 | Outpatient (REF) | payer OTHER, SELFPAY ==
--- NOTE | ~2025-05-31 | US_ITS ---
EXAMINATION: US PELVIS CLINICAL INFORMATION: N93.9 - Abnormal uterine and vaginal bleeding, unspecified COMPARISON: None available. TECHNIQUE: Ultrasound of the pelvis is performed using both transabdominal and transvaginal transducers along with Doppler. Transvaginal imaging is performed due to inadequate visualization transabdominally. FINDINGS: Uterus: The uterus is anteflexed and measures 8.9 x 4.3 x 5.8 cm. The double wall endometrial thickness is 11 mm. The uterus is smooth in contour and has normal myometrial echogenicity. No visible fibroid. Adnexa: Both ovaries are visualized. There is normal color flow to the adnexa. There is no ovarian torsion. There is no pelvic ascites or fluid collection. Right ovary measures 4.7 x 3.3 x 3.6 cm. There is a simple anechoic cyst with increased through transmission measuring 3.3 cm long axis Left ovary measures 3.0 x 2.3 x 2.6 cm. US/US pelvic and transvaginal IMPRESSION: Unremarkable pelvic ultrasound. 3.3 cm right ovarian simple cyst requires no further follow-up. Electronically signed by: Karlos Pemberton MD 05/31/2025 01:45 PM EDT
--- OUTSIDE RECORDS SUMMARY | 2025-05-31 13:10 | XMS_ITS ---
Author Name [facility] Organization Unknown Care Team Organization Name Specialty Phone Email Start Date End Da te [facility] Dameon Rajan DO Primary Care 07/14/202306/07 [facility] ELVIS BROWNLEE Primary Care 09/14/2022 06/25/20
--- OUTSIDE RECORDS SUMMARY | 2025-05-31 13:10 | XMS_ITS | Clinical Summary ---
Author Organization [facility] [address] [facility] Address [address] [place] [address] Phone Care Team Providers Care Vice President Of Instruction Name Role Phone Unavailable Primary Care Provider [...] Vaccine (1 - 2023-2 5 season) 2024 Depression Screening 11/07/2024 08/24/2024 Cervical Cancer Screening: HPV 11/20/2024 11/20/2019 Influenza Vaccine (#1) 2025 Cholesterol Screening (Lipid Panel) 08/24/2029 08/24/2024, 08/24/2024 [...] 5 Years) and At-Risk Patients (6 to 49 Years) Aged Out No longer eligible b [...] MAINTENANCE Final Result * Lipid panel (08/24/2024) [facility] LDL/HDL Ratio 3 0 - 4 Triglycerides 78 0 - 150 mg/dL Cholesterol 167 0 - 200 mg/dL HDL 62 >=40 mg/dL LDL Cholesterol 90 0 - 100 mg/dL Blood Venous blood specimen / Unknown Historical Provider LAB BLOOD ORDERABLES Sandrine l Result * Cervical Cancer Screening: HPV (11/20/2019) [facility] Cervical Cancer Screening: HPV negative,a bstracted Historical Provider HEALTH MAINTENANCE Final Result * HIV Screening (11/20/2019) [facility] HIV Screening abstracted Historical Provider HEALTH MAINTENANCE Final Result from Last 3 Months or Most Recently Relevant to Health Maintenance Insurance [facility] [address] Advance Directives Documents on File Type Date Recorded 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
== END 2025-05-31 13:09 | disposition home or self-care (01) ==
LOC: HO.US 13:08
PROVIDERS: PCP Internal Medicine; Visit Provider Advanced Practice Midwife
DX: N93.9 Abnormal uterine and vaginal bleeding, unspecified (principal)
CPT/HCPCS: 76830; 76856

== ENCOUNTER → 2025-05-31 13:10 | Outpatient (BNV) | payer OTHER, SELFPAY | PROVIDERS: PCP Internal Medicine; Visit Provider Radiology Diagnostic Radiology | DX: N83.201 Unspecified ovarian cyst, right side (principal) | CPT/HCPCS: 76830; 76856 ==

== ENCOUNTER 2025-06-25 11:15 | Outpatient (AMB) | payer OTHER, SELFPAY ==
[2025-06-25 11:20] VITALS: BP 106/70; BMI 30.3
--- NOTE | 2025-06-25 11:20 | A.OFFVIS_ITS ---
Vital Signs 06/25/25 11:20 Height 5 ft 6 in Weight 188 lb BMI 30.3 BP 106/70 Blood Pressure Location Rt brachial Position Sitting Intake Visit Reasons: Ultra sound follow up/ emb Intake Note: here for u/s Allergies ibuprofen (From Motrin) Allergy (Severe, Verified 06/25/25 11:24) Rash Medication List - Last Reconciled 06/25/25 by Svetlana Feliciano LPN escitalopram oxalate 20 mg PO DAILY lorazepam mg PO PRN tretinoin 0.1% 1 appl topical BEDTIME Zepbound (tirzepatide (weight loss)) 7.5 mg (0.5 mL) subcut QWEEK NS Zepbound (tirzepatide (weight loss)) 10 mg (0.5 mL) subcut QWEEK NS Is last menstrual period known: Yes Last menstrual period: 06/19/25 Post menopausal: No Patient : No Do you need a note to return to daycare/school/sports/work: No HPI Comments Details: Patient is here today for a follow up ultrasound and EMB due to history of AUB. Having random lower cramping. [facility] Medical History Abnormal uterine bleeding (AUB) Anxiety and depression No pertinent family history Surgical History No pertinent past surgical history Family History Maternal Grandmother Colon cancer Social History Household Members: Spouse and Children Both parents involved: No Caregiver staying overnight: No Housing: House Are you a primary home health care case manager to a significant other at home: Yes Do you presently have visiting nurse or other home services: No 75 years or older and lives alone: No Alcohol intake: current Alcohol intake frequency: a few times a month Alcohol type: wine Patient Tobacco Use Status: Never used Tobacco e-Cigarette/Vaping Use: Never Used Second Hand Smoke Exposure: No Patient : No service: No Current occupational status: employed 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 Current occupational exposures/hazards: No Cognitive needs: No Hearing needs: No Vision needs: No Female Reproductive History Menstrual Date of last menstrual period: 06/19/25 Total pregnancies: 2 Number of Living Children: 2 Review of Systems Const All systems reviewed & are unremarkable except as noted in HPI and below Physical Exam Vital Signs: Last Vital Signs BP 106/70 06/25/25 11:20 BMI result Body Mass Index 30.3 Const General: cooperative, healthy appearing and no acute distress Orientation/consciousness: patient oriented x3 GI Inspection: Yes normal to inspection Palpation (GI): Soft to palpation and Other GI palpation findings present (Nontender) Rectal Exam - Female: visual inspection normal General: Yes bladder normal to palpation External Female Exam: normal appearance of the urethra Speculum Exam - Vagina: normal appearance of the vagina, normal palpation and normal vaginal discharge Speculum Exam - Cervix: normal appearance of the cervix and normal palpation Bimanual exam- vagina & uterus: normal bimanual exam, normal palpation, uterine size normal, bladder normal to palpation, normal palpation, uterine shape normal and non-tender Bimanual Exam- Adnexa, other: normal adnexae Neuro General: patient oriented x3 Office Procedures Endometrial Biopsy Details: The patient is here today for an endometrial biopsy due to AUB to rule out any pathology including atypical, hyperplasia or cancer cells of the uterus. She was counseled regarding anticipatory guidance for the procedure including the risks for pain, infection, bleeding, perforation, potential injury to the tissues may include the cervix, uterus, tubes, bladder and bowels. These injuries may include further treatment and evaluation including surgery, blood transfusions, antibiotics, hospitalizations and anesthesia. Permanent injury and scarring can occur. She was consented for the procedure, and the consent forms were signed. She is agreeable to have the procedure today. All questions were answered. Endometrial Biopsy Procedure: The patient was placed in the dorsal lithotomy position and a sterile speculum inserted. Using aseptic technique for the procedure. The cervix was cleansed with Betadine x 3 swabs. A single toothed tenaculum was placed on the cervix for stabilization and the uterus was sounded to 8 cm with a 4mm pipelle, and tissue sample obtained. Minimal bleeding was observed. The tissue sample was placed in formalin in a patient labeled container by staff assisting and sent to the pathology department for processing and interpretation. The patient tolerate the procedure well and was in good condition when leaving the department. Endometrial Biopsy Post Procedure Care: Nothing in the vagina including: tampons, douching or intimacy until all the bleeding has subsided. There may be some post procedure bleeding for several days, this bleeding is usually light and may turn to a light brown or pink color. Mild cramps may occurs. Nothing in the vaginal including: tampons, douching, or intimacy until all the bleeding has subsided. You may take an over the counter mild analgesic such as Tylenol or Advil (if no allergies) per the manufactures recommendation on dosing, frequency, and follow the directions completely. Call the office if any: fever (over 100.4), flu like symptoms, abdominal pain (worse than cramping), foul smelling, infected appearing vaginal discharge, or heavy bleeding. If indicated: Use condoms to prevent and STI's, and only after the bleeding has stopped completely. Return to the office in 2 weeks for results and plan of care. This note is constructed using voice recognition software. While every effort has been made to ensure accuracy, hip hop performers errors may have been included. [id number] Biopsy Results AMB Test Urine AMB Test Urine Negative Last Edit by Svetlana Feliciano LPN on 11:29 Results Reviewed Results Reviewed: Laboratory Last Values Tst Clinic Negative 06/25/25 11:28 [place] [address] Ultrasound Report Signed Patient: Anna De La Torre MR#: [id number] : 1990 Acct:[id number] Age/Sex: 34 / F ADM Date: 05/31/25 Loc: . Attending Dr: Mira Cat CNM Ordering Physician: Mira Cat CNM Date of Service: 05/31/25 Procedure(s): US pelvic and transvaginal Accession Number(s): [id number] cc: Mira Cat CNM; Emily Angulo MD~ EXAMINATION: US PELVIS CLINICAL INFORMATION: N93.9 - Abnormal uterine and vaginal bleeding, unspecified COMPARISON: None available. TECHNIQUE: Ultrasound of the pelvis is performed using both transabdominal and transvaginal transducers along with Doppler. Transvaginal imaging is performed due to inadequate visualization transabdominally. FINDINGS: Uterus: The uterus is anteflexed and measures 8.9 x 4.3 x 5.8 cm. The double wall endometrial thickness is 11 mm. The uterus is smooth in contour and has normal myometrial echogenicity. No visible fibroid. Adnexa: Both ovaries are visualized. There is normal color flow to the adnexa. There is no ovarian torsion. There is no pelvic ascites or fluid collection. Right ovary measures 4.7 x 3.3 x 3.6 cm. There is a simple anechoic cyst with increased through transmission measuring 3.3 cm long axis Left ovary measures 3.0 x 2.3 x 2.6 cm. US/US pelvic and transvaginal IMPRESSION: Unremarkable pelvic ultrasound. 3.3 cm right ovarian simple cyst requires no further follow-up. Electronically signed by: Karlos Pemberton MD 05/31/2025 01:45 PM EDT Dictated By: Karlos Pemberton MD Signed By: <Electronically signed by Karlos Pemberton MD in OV> 05/31/25 1345 DD/ 1322 TD/TT: 05/31/25 1331 Corporate Analyst: Assessment & Plan Assessment & Plan (1) Abnormal uterine bleeding (AUB): Code(s): N93.9 - Abnormal uterine and vaginal bleeding, unspecified Category: Medical Plan: Endometrial biopsy procedure completed. GC chlamydia and BV panel obtained. Await results for final plan of care. Counseled regarding Mirena IUD use for treatment of AUB, cycle control. Handout provided, we will consider scheduling with next follow up. Preprocedure planning reviewed including to take Tylenol and have some food and fluids 1 hour before the procedure. Follow up EMB results in 2 weeks. (2) Ovarian cyst: Code(s): N83.209 - Unspecified ovarian cyst, unspecified side Qualifiers: Laterality: right Qualified Code(s): N83.201 - Unspecified ovarian cyst, right side Plan Discussed: Ultrasound [id number]-[id number]-[id number] simple cyst 3.3 cm., no indication for follow up at this time. Report any right-sided pelvic pain for further evaluation as needed. The patient expressed understanding and agreement with the plan of care. All of her questions and concerns were addressed to the best of my ability. This note is constructed using voice recognition software. While every effort has been made to ensure accuracy, hip hop performers errors may have been included. Orders: Orders AMB Endometrial Biopsy Today N93.9 - Abnormal uterine and vaginal bleeding, unspecified Bacterial Vaginosis Panel Today N93.9 - Abnormal uterine and vaginal bleeding, unspecified AMB HCG Urine Test Today E66.811 - Obesity, class 1, Z32.02 - Encounter for test, result negative CT NG by PCR Vag/Cerv Today N93.9 - Abnormal uterine and vaginal bleeding, unspecified Coding Level of Care Code Procedure Only Diagnoses Abnormal uterine bleeding (AUB) N93.9 Cyst of right ovary N83.201 Laterality: right CPT Codes Endometrial Biopsy - CPT: 95240-Ubnankegowd Biopsy ([id number])
--- OUTSIDE RECORDS SUMMARY | 2025-06-25 12:48 | XMS_ITS | Clinical Summary ---
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 Role Phone Unavailable Primary Care Provider [...] MAINTENANCE Final Result * Lipid panel (08/24/2024) [facility] LDL/HDL Ratio 3 0 - 4 Triglycerides 78 0 - 150 mg/dL Cholesterol 167 0 - 200 mg/dL HDL 62 >=40 mg/dL LDL Cholesterol 90 0 - 100 mg/dL Blood Venous blood specimen / Unknown Historical Provider LAB BLOOD ORDERABLES Sandrine l Result * Cervical Cancer Screening: HPV (11/20/2019) [facility] Cervical Cancer Screening: HPV negative,a bstracted Historical Provider HEALTH MAINTENANCE Final Result * HIV Screening (11/20/2019) [facility] HIV Screening abstracted Historical Provider HEALTH MAINTENANCE Final Result from Last 3 Months or Most Recently Relevant to Health Maintenance Insurance [facility] [address] HEALTH PLAN Advance Directives Documents on File Type Date Recorded 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
== END 2025-06-25 13:27 | disposition home or self-care (01) ==
LOC: HO.HWS 11:16
PROVIDERS: PCP Internal Medicine; Visit Provider Advanced Practice Midwife
DX: N93.9 Abnormal uterine and vaginal bleeding, unspecified (principal); E66.811 Obesity, class 1; Z32.02 Encounter for pregnancy test, result negative
CPT/HCPCS: 58100

== ENCOUNTER 2025-06-25 11:15 | Outpatient (REF) | payer OTHER, SELFPAY ==
[2025-06-25 16:57] LABS: Bacterial Vaginosis PCR NEGATIVE (Negative); Candida Group PCR NOT DETECTED (Not Detect); Candida glab krusei PCR NOT DETECTED (Not Detect); Trichomonas vaginalis PCR NOT DETECTED (Not Detect)
[2025-06-25 17:28] LABS: CT PCR NOT DETECTED (Not Detect.); NG PCR NOT DETECTED (Not Detect.)
== END 2025-06-25 11:16 | disposition home or self-care (01) ==
LOC: HO.LNP 11:15
PROVIDERS: PCP Internal Medicine; Visit Provider Advanced Practice Midwife
DX: N83.201 Unspecified ovarian cyst, right side (principal); N93.9 Abnormal uterine and vaginal bleeding, unspecified; E66.811 Obesity, class 1; Z68.30 Body mass index [BMI] 30.0-30.9, adult; Z11.3 Encounter for screening for infections with a predominantly sexual mode of transmission; Z11.8 Encounter for screening for other infectious and parasitic diseases; Z79.899 Other long term (current) drug therapy
CPT/HCPCS: 58100; 81025; 81515; 87491; 87591; 88305

== ENCOUNTER 2025-07-16 09:36 | Outpatient (AMB) | payer OTHER, SELFPAY ==
--- NOTE | 2025-07-16 09:47 | MHC.OFFVIS ---
Vital Signs 07/16/25 09:50 Height 5 ft 6 in Weight 188 lb BMI 30.3 BP 100/62 Blood Pressure Location Rt brachial Position Sitting Intake Visit Reasons: EMB Results/Mirena Insertion/45 minutes Intake Note: mirena insertion negative upt Information Interpreted: non-clinical & clinical Telephone Recorder: Telephone Recorder Present (Miranda) Accompanied by: Self / Same As Patient Allergies ibuprofen (From Motrin) Allergy (Severe, Verified 06/25/25 11:24) Rash Medication List - Last Reconciled 07/16/25 by Svetlana Feliciano LPN escitalopram oxalate 20 mg PO DAILY lorazepam mg PO PRN tretinoin 0.1% 1 appl topical BEDTIME Is last menstrual period known: Yes Last menstrual period: 07/13/25 Post menopausal: No Patient : No Do you need a note to return to daycare/school/sports/work: No HPI Comments Details: Patient is here today for a follow up endometrial biopsy and IUD insertion. History of AUB. UPT is negative. LMP onset 07/13/2025. [facility] Medical History IUD (intrauterine device) in place Abnormal uterine bleeding (AUB) Anxiety and depression No pertinent family history Surgical History No pertinent past surgical history Family History Maternal Grandmother Colon cancer Social History Household Members: Spouse and Children Both parents involved: No Caregiver staying overnight: No Housing: House Are you a primary healthcare prof to a significant other at home: Yes Do you presently have visiting nurse or other home services: No 75 years or older and lives alone: No Alcohol intake: current Alcohol intake frequency: a few times a month Alcohol type: wine Patient Tobacco Use Status: Never used Tobacco e-Cigarette/Vaping Use: Never Used Second Hand Smoke Exposure: No service: No Current occupational status: employed 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 Current occupational exposures/hazards: No Cognitive needs: No Hearing needs: No Vision needs: No Female Reproductive History Menstrual Date of last menstrual period: 07/13/25 Review of Systems Const All systems reviewed & are unremarkable except as noted in HPI and below Physical Exam Vital Signs: Last Vital Signs BP 100/62 07/16/25 09:50 BMI result Body Mass Index 30.3 Const General: cooperative, healthy appearing and no acute distress Orientation/consciousness: patient oriented x3 GI Inspection: Yes normal to inspection Palpation (GI): Soft to palpation and Other GI palpation findings present (Nontender) Rectal Exam - Female: visual inspection normal General: Yes bladder normal to palpation External Female Exam: normal appearance of the urethra Speculum Exam - Vagina: normal appearance of the vagina, normal palpation, normal vaginal discharge and vaginal bleeding Speculum Exam - Cervix: normal appearance of the cervix and normal palpation Bimanual exam- vagina & uterus: normal bimanual exam, normal palpation, uterine size normal, bladder normal to palpation, normal palpation, uterine shape normal and non-tender Bimanual Exam- Adnexa, other: normal adnexae OB/external & speculum: vaginal bleeding Neuro General: patient oriented x3 Office Procedures IUD Insert/Removal Details [id number] Insertion Procedure code (CPT) selection complete IUD Insert/Removal Details Details: The patient is here today for a Mirena IUD insertion for AUB. She was counseled on the side effects including: menstrual cycle changes, pain, infection, bleeding, or expulsion. Risks of injury to the vagina, cervix, uterus, tubes, ovaries, bowel, bladder, and any adjacent tissue, resulting in nerve damage, scarring, and pain. Risks complications for the procedure that may require other test including ultrasounds, Xray, CT or MRI scan, surgery, anesthesia, blood transfusion. A urine test was completed and was negative. She was consented for the IUD insertion and has signed the consent form. All questions were answered. IUD Insertion: The patient was placed in the dorsal lithotomy position and a sterile speculum was inserted. The procedure was completed under aseptic technique. The cervix and vagina were cleansed with a Betadine solution x 3 swabs. A single toothed tenaculum was applied to the cervix for stabilization, and the uterus was sounded to 7.5cm. The device was inserted and released with a gentle motion. Bleeding from the tenaculum sites and the procedure were minimal. The strings were trimmed to 3cm. All of the equipment was removed and the bimanual was normal, no tip was palpable at the cervical os. The patient tolerated the procedure well and left the office in good condition. Post IUD Insertion Care: There may be some post insertion bleeding for several days that is usually light and can turn to a light brown or pink in color. Mild cramping may occur. Nothing in the vagina including: tampons, douching or intimacy for several days. You may take an over the counter mild analgesia like Tylenol or Advil (if no allergies), per the manufacturers recommendations on dosing and frequency. Follow the directions completely. Call the office if any: fever (over 100.4), flu like symptoms, abdominal pain, worsening cramping not resolved with over the counter medications, foul smelling vaginal odor, signs of infected appearing discharge, or heavy bleeding. Use a condom for a back up method if indicated for 7 days. Always use a condom for STI prevention; IUD's are not protective against STD's. Return to the office in 4-6 weeks for IUD recheck. This note is constructed using voice recognition software. While every effort has been made to ensure accuracy, email producer errors may have been included. [id number] Insertion Procedure code (CPT) selection complete Office Meds Mirena 21 mcg/24 hr (up to 8 years) 52 mg intrauterine device Performing Provider: Mira Cat CNM Performing Location: [facility] Administered by: WENDI Nicole on 07/16/25 11:06 Dose Route Admin Location Dispensed Lot Number Expiration Date [facility] Actuarial Intern 1 device intrauterine 1 device [id number] 09/06/27 [id number] [employer] Total Dispensed Waste 1 device 0 % Results AMB Test Urine AMB Test Urine Negative Last Edit by Svetlana Feliciano LPN on 07/16/25 10:03 Results Reviewed Results Reviewed: Laboratory Last Values Tst Clinic Negative 07/16/25 10:02 Surgical Pathology [id number] Name: Anna De La Torre Age/Sex: 34/F Attending: Mira Cat CNM : 1990 Submitted by: Mira Cat CNM Copies to: Emily Angulo MD MR #: [id number] Status: DEP REF Collected: 06/25/25 Location: [facility] Received: 06/26/25 Diagnosis Endometrium, biopsy: Benign proliferative endometrium with focal breakdown; no atypia or carcinoma. Clinical History AUB Microscopic Description Microscopic sections reviewed. Material Received Endometrial biopsy Gross Description Received in formalin labeled ?EMB? is a 1.5 x 1.5 x 0.5 cm aggregate of multiple irregular and tubular cast fragments of focally congested and hemorrhagic jameson and maroon-brown tissue, mucus and blood, submitted in toto in a cassette labeled A. CEDS Copies To Mira Cat CNM [facility] [address] [place] [address] Emily Angulo MD [address] [address] [email or web address] NOTE: Unless otherwise stated, all tissue is formalin-fixed and paraffin-embedded. Some or all of the immunohistochemical tests reported herein may have been developed and their performance characteristics determined by [facility]. They have not been cleared or approved by the U.S. Food and Drug Administration (FDA). However, the FDA has determined that such clearance or approval is not necessary. This laboratory is certified under the Clinical Laboratory Improvement Amendments of 1988 (CLIA) as qualified to perform high complexity clinical laboratory testing. Patient: Anna De La Torre Age/Sex: 34/F MR#: [id number] Page 1 of 2 Surgical Pathology [id number] Electronically Signed By: Betzy Simmons 06/27/25 1308 Patient: Anna De La Torre Age/Sex: 34/F MR#: [id number] Page 2 of 2 Assessment & Plan Assessment & Plan (1) Encounter for IUD insertion: Code(s): Z30.430 - Encounter for insertion of intrauterine contraceptive device Plan: IUD insertion completed. See procedure notes. (2) Abnormal uterine bleeding (AUB): Code(s): N93.9 - Abnormal uterine and vaginal bleeding, unspecified Category: Medical Plan: Discussed: Endometrial biopsy results- Diagnosis Endometrium, biopsy: Benign proliferative endometrium with focal breakdown; no atypia or carcinoma. Plan The patient expressed understanding and agreement with the plan of care. All of her questions and concerns were addressed to the best of my ability. This note is constructed using voice recognition software. While every effort has been made to ensure accuracy, email producer errors may have been included. Orders: Orders AMB HCG Urine Test Today Z32.02 - Encounter for test, result negative AMB IUD Insertion/Removal - Practice Supplied Today Z30.430 - Encounter for insertion of intrauterine contraceptive device Coding Level of Care Code Procedure Only Diagnoses Encounter for IUD insertion Z30.430 Abnormal uterine bleeding (AUB) N93.9 CPT Codes Details - CPT: 24197-YDO Insertion ([id number]) Details - CPT: 76774-IWH Insertion ([id number])
[2025-07-16 09:50] VITALS: BP 100/62; BMI 30.3
== END 2025-07-16 10:41 | disposition home or self-care (01) ==
LOC: HO.HWS 09:37
PROVIDERS: PCP Internal Medicine; Visit Provider Advanced Practice Midwife
DX: Z30.430 Encounter for insertion of intrauterine contraceptive device (principal); N93.9 Abnormal uterine and vaginal bleeding, unspecified; Z32.02 Encounter for pregnancy test, result negative
CPT/HCPCS: 58300

== ENCOUNTER → 2025-07-16 09:36 | Outpatient (BNVA) | payer OTHER, SELFPAY | PROVIDERS: PCP Internal Medicine; Visit Provider Advanced Practice Midwife | DX: N93.9 Abnormal uterine and vaginal bleeding, unspecified (principal); Z30.430 Encounter for insertion of intrauterine contraceptive device | CPT/HCPCS: 58300; 81025; J7298 ==

== ENCOUNTER 2025-08-20 15:13 | Outpatient (AMB) | payer OTHER, SELFPAY ==
--- NOTE | 2025-08-20 15:16 | MHC.PC.OV ---
Vital Signs 08/20/25 15:22 Height 5 ft 6 in Weight 199 lb 8 oz BMI 32.2 BP 138/76 Blood Pressure Location Rt brachial Position Sitting Respiration 13 Pulse 100 Pulse Source Pulse Oximeter Temp 97.2 F Temp Source Oral Pulse Oximetry (%) 99 Oxygen Delivery Method Room Air Intake Visit Reasons: cpe Intake Note: CPE. Design Supervisor Required: No Allergies ibuprofen (From Motrin) Allergy (Severe, Verified 08/20/25 15:16) Rash tirzepatide (From Zepbound) Allergy (Mild, Verified 08/20/25 15:34) Gastrointestinal Upset Tobacco use date assessed: 08/20/25 Dental Screening Dental Screen Date: 08/20/25 Did you have a dental visit in the last 12 months?: Yes Did you have a dental problem in the last 6 months where you did not have access to dental care?: No Was dental information given to patient?: Patient has dentist HPI HPI Comments History of Present Illness Details 35 y/o f with obesity, generalized anxiety, depression, obesity, family hx of colon ca (Mgm), presenting for CPE Anxiety/depression: On escitalopram and lorazepam. She feels that the lexapro has stopped being effective for her Obesity previously treated with Wegovy was up to 2.4, patients switched to Zepbound due to insurance but ended up in the ER twice with severe abdominal pain so stopped the medication. She would like to go back on wegovy as she continues to be in the obese class despite dietary, lifestyle modifications Declines flu vaccination ROS CONSTITUTIONAL: Denies weight loss, fever and chills. HEENT: Denies changes in vision and hearing. RESPIRATORY: Denies SOB and cough. CV: Denies palpitations and CP GI: Denies abdominal pain, nausea, vomiting and diarrhea. : Denies dysuria and urinary frequency. MSK: Denies new myalgia and joint pain. SKIN: Denies rash and pruritus. NEUROLOGICAL: Denies headache PSYCHIATRIC: Denies recent changes in mood. PHYSICAL EXAM: GENERAL: Alert and oriented x 3. NAD EYES: EOMI. Anicteric. HENT: Moist mucous membranes. No scleral icterus. No cervical lymphadenopathy. LUNGS: Clear to auscultation bilaterally. CARDIOVASCULAR: Regular rate and rhythm. No murmur. No JVD. ABDOMEN: Soft, non-tender +bs EXTREMITIES: No edema. Non-tender. SKIN: scattered infrequent nevi, ak and viral wart NEUROLOGIC: No focal neurological deficits. CN II-XII grossly intact PSYCHIATRIC: Cooperative. Appropriate mood and affect [facility] Medical History IUD (intrauterine device) in place Abnormal uterine bleeding (AUB) Anxiety and depression No pertinent family history Surgical History No pertinent past surgical history Family History Maternal Grandmother Colon cancer Social History Household Members: Spouse and Children Both parents involved: No Caregiver staying overnight: No Housing: House Are you a primary certified social workers in health care to a significant other at home: Yes Do you presently have visiting nurse or other home services: No 75 years or older and lives alone: No Alcohol intake: current Alcohol intake frequency: a few times a month Alcohol type: wine Patient Tobacco Use Status: Never used Tobacco e-Cigarette/Vaping Use: Never Used Second Hand Smoke Exposure: No service: No Current occupational status: employed 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 1. Little interest or pleasure in doing things: not at all 2. Feeling down, depressed, or hopeless: not at all 3. Trouble falling or staying asleep, or sleeping too much: not at all 4. Feeling tired or having little energy: not at all 5. Poor appetite or overeating: not at all 6. Feeling bad about yourself - or that you are a failure or have let yourself or your family down: not at all 7. Trouble concentrating on things, such as reading the newspaper or watching television: not at all 8. Moving or speaking so slowly that other people could have noticed. Or the opposite - being so fidgety or restless that you have been moving around a lot more than usual: not at all 9. Thoughts that you would be better off or of hurting yourself in some way: not at all Total score: 0 Depression Screening Interpretation: Negative Depression Screening Done: Yes 95143 - PHQ-9 Billing: Yes Source: Developed by Drs. Philip Bruno, Tigre Marte and colleagues, with an educational junaid from [employer]. Thrive Questionnaire Date Thrive assessed: 08/20/25 I am a: Patient What is your living situation today?: I have a steady place to live Within the past 12 months, did the food you bought not last and you didn't have the money to get more?: Never true Within the past 12 months, did you worry whether your food would run out before you got money to buy more?: Never true Do you have trouble paying for medicines?: No Do you have trouble getting transportation to medical appointments?: No Do you have trouble paying your heating and electricity bill?: No Do you have trouble taking care of your child, family member or friend?: No Do you have trouble with day-to-day activities such as bathing, preparing meals, shopping, managing finances, etc.?: No Are you currently unemployed and looking for a job?: No Are you interested in more education?: No Please select the resources that you would like help with: None Currently or been in a relationship where the following occur: No concerns reported THRIVE Score: 0 LUDWIG-7 AMB Questionnaire LUDWIG-7 Date LUDWIG - 7 assessed: 08/20/25 Feeling nervous, anxious, or on edge: 0 = Not at all Not being able to stop or control worryin = Not at all Worrying too much about different things: 0 = Not at all Trouble relaxin = Not at all Being so restless that it is hard to sit still: 0 = Not at all Becoming easily annoyed or irritable: 0 = Not at all Feeling afraid as if something awful might happen: 0 = Not at all Total LUDWIG-7 score (0-4 normal; 5-9 mild; 10-14 moderate; 15-21 severe): 0 Source: Developed by Drs. Philip Bruno, Tigre Marte and colleagues, with an educational junaid from [employer]. LUDWIG-7 Assessment Billing LUDWIG-7 Assessment Tool: LUDWIG-7 Assessment 71194 Physical exam (Primary Care) Vital Signs: Last Vital Signs Temp 97.2 F 08/20/25 15:22 Pulse 100 08/20/25 15:22 Resp 13 08/20/25 15:22 BP 138/76 08/20/25 15:22 Pulse Ox 99 08/20/25 15:22 Oxygen Delivery Method Room Air 08/20/25 15:22 BMI result Body Mass Index 32.2 Tobacco/Smoking Status: Tobacco use Status Tobacco use date assessed 08/20/25 08/20/25 15:20 Patient Tobacco Use Status Never used Tobacco 08/20/25 15:20 e-Cigarette/Vaping Use Never Used 08/20/25 15:20 PHQ-9: PHQ-9 Score PHQ-9: Total score 0 08/21/25 09:54 Depression Screening Interpretation: Negative Thrive Assessment: Date of Thrive Assessment Date Thrive assessed 08/20/25 08/20/25 15:20 Currently or been in a relationship where the following occur: No concerns reported Coding Level of Care Code Est Pt Prev Care 18-39y(88337) Diagnoses Physical exam Z00.00 Additional Codes LUDWIG-7 Assessment Billing - LUDWIG-7 Assessment Tool: LUDWIG-7 Assessment 60606 ([id number]) PHQ-9 - 94816 - PHQ-9 Billing: Yes ([id number]) Assessment & Plan Assessment & Plan (1) Physical exam: Code(s): Z00.00 - Encounter for general adult medical examination without abnormal findings Plan Physical exam Interval history reviewed Preventive measures for age discussed Anxiety/depression-taper off lexapro. Start prozac. continue sparing ativan prn Obesity-restart wegovy. Intolerant of zepbound Labs ordered Orders: Orders Lipid Panel 08/20/25 E66.811 - Obesity, class 1, F41.1 - Generalized anxiety disorder, R35.89 - Other polyuria Complete Blood Count Auto Diff 08/20/25 E66.811 - Obesity, class 1, F41.1 - Generalized anxiety disorder, R35.89 - Other polyuria Comprehensive Met. Panel 08/20/25 E66.811 - Obesity, class 1, F41.1 - Generalized anxiety disorder, R35.89 - Other polyuria TSH reflex Free T4 08/20/25 E66.811 - Obesity, class 1, F41.1 - Generalized anxiety disorder, R35.89 - Other polyuria Hemoglobin A1c 08/20/25 E66.811 - Obesity, class 1, F41.1 - Generalized anxiety disorder, R35.89 - Other polyuria Medications: New fluoxetine (Prozac) then increase to 20mg daily 10 mg PO DAILY 7 caps 0RF Wegovy (semaglutide (weight loss)) administer weeks 1 through 4 of therapy 0.25 mg (0.5 mL) subcut QWEEK 2 mL 1RF NS fluoxetine 20 mg PO DAILY 90 caps 3RF Changed From lorazepam PO PRN To lorazepam 1 mg PO DAILY PRN 30 tabs 1RF anxiety Discontinued escitalopram oxalate Discontinued Reason: Doctor's Order 20 mg PO DAILY 90 tabs 2RF
[2025-08-20 15:22] VITALS: BP 138/76; PULSE 100; RESP 13; TEMP 36.2; O2SAT 99; BMI 32.2
--- OUTSIDE RECORDS SUMMARY | 2025-08-20 18:07 | XMS_ITS | Clinical Summary ---
Author Organization [facility] [address] Address [address] [place] [address] Phone Care Team Providers Care Director Biology Name Role Phone Unavailable Primary Care Provider [...] 05/08/2018 Degenerative disc disease, lumbar 02/28/2017 Immunizations Immunization Administration Dates Next Due Tdap Tetanus diptheria [...] of 3 - 19+ 3-dose series) 2008 HPV Vaccines (1 - 3-dose SCD M series) 2016 Hepatitis C Screening 10/10/2022 Social Influencers of Health Screening 10/10/2022 Depression Screening 11/07/2024 08/24/2024 Cervical Cancer Screening: HPV 11/20/2024 11/20/2019 COVID-19 Vaccine (1 - 2023-2 5 season) 2025 Influenza Vaccine (#1) 2025 Cholesterol Screening (Lipid Panel) 08/24/2029 08/24/2024, 08/24/2024 DTaP,Tdap,and Td Vaccines (3 - Td or Tdap) 03/12/2030 03/12/2020, 10/27/2016 RSV Immunization Adult Patients (1 - 1-dose 75+ series) 2064 HIV Screening Completed 11/20/2019 HIB Vaccines Aged [...] Screening (08/24/2024) Depression Screening abstracted Historical Provider HEALTH MAINTENANCE Final Result * [...] Result * Cervical Cancer Screening: HPV (11/20/2019) Pathologist [facility] Cervical Cancer Screening: HPV negative,a bstracted [facility] Provider HEALTH MAINTENANCE Final Result * HIV Screening (11/20/2019) Pathologist [facility] HIV Screening abstracted [facility] Provider HEALTH MAINTENANCE Final Result from Last 3 Months or Most Recently Relevant to Health Maintenance Insurance [facility] Advance Directives Documents on File Type Date Recorded Patient Sharepoint Architect Expl anation Health Care Decision (hx) 05/13/2020 AD GARCIA DIRECTIVE
== END 2025-08-20 15:46 | disposition home or self-care (01) ==
LOC: HO.HMCFM 15:14
PROVIDERS: PCP Internal Medicine; Visit Provider Internal Medicine
DX: Z00.00 Encounter for general adult medical examination without abnormal findings (principal)

== ENCOUNTER → 2025-08-20 15:13 | Outpatient (BNVA) | payer OTHER, SELFPAY | PROVIDERS: PCP Internal Medicine; Visit Provider Internal Medicine | DX: Z00.00 Encounter for general adult medical examination without abnormal findings (principal); F41.1 Generalized anxiety disorder; F32.A Depression, unspecified; E66.9 Obesity, unspecified; Z68.32 Body mass index [BMI] 32.0-32.9, adult; Z79.899 Other long term (current) drug therapy; Z13.31 Encounter for screening for depression; Z13.39 Encounter for screening examination for other mental health and behavioral disorders | CPT/HCPCS: 96127; 99395 ==

== ENCOUNTER 2025-08-27 12:55 | Outpatient (AMB) | payer OTHER, SELFPAY ==
--- NOTE | 2025-08-27 13:04 | MHC.OFFVIS ---
Vital Signs 08/27/25 13:06 Height 5 ft 6 in BP 100/56 L Intake Visit Reasons: 6 week IUD Check Allergies ibuprofen (From Motrin) Allergy (Severe, Verified 08/20/25 15:16) Rash tirzepatide (From Zepbound) Allergy (Mild, Verified 08/20/25 15:34) Gastrointestinal Upset HPI Comments Details: Patient is here today for a follow up status post Mirena IUD insertion. She reports the bleeding has decreased and has no other concerns today. [facility] Medical History IUD (intrauterine device) in place Abnormal uterine bleeding (AUB) Anxiety and depression No pertinent family history Surgical History No pertinent past surgical history Family History Maternal Grandmother Colon cancer Social History Household Members: Spouse and Children Both parents involved: No Caregiver staying overnight: No Housing: House Are you a primary cardiac care unit nurse to a significant other at home: Yes Do you presently have visiting nurse or other home services: No 75 years or older and lives alone: No Alcohol intake: current Alcohol intake frequency: a few times a month Alcohol type: wine Patient Tobacco Use Status: Never used Tobacco e-Cigarette/Vaping Use: Never Used Second Hand Smoke Exposure: No service: No Current occupational status: employed 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 Current occupational exposures/hazards: No Cognitive needs: No Hearing needs: No Vision needs: No Female Reproductive History Menstrual control method: progestin IUCD (Mirena 07/16/25) Review of Systems Const All systems reviewed & are unremarkable except as noted in HPI and below Physical Exam Vital Signs: Last Vital Signs BP 100/56 L 08/27/25 13:06 Const General: cooperative, healthy appearing and no acute distress Orientation/consciousness: patient oriented x3 GI Inspection: Yes normal to inspection Palpation (GI): Soft to palpation and Other GI palpation findings present (Nontender) Rectal Exam - Female: visual inspection normal General: Yes bladder normal to palpation External Female Exam: normal appearance of the urethra Speculum Exam - Vagina: normal appearance of the vagina, normal palpation and normal vaginal discharge Speculum Exam - Cervix: normal appearance of the cervix, normal palpation and Other cervical findings present (IUD strings found at the os) Bimanual exam- vagina & uterus: normal bimanual exam, normal palpation, uterine size normal, bladder normal to palpation, normal palpation, uterine shape normal and non-tender Bimanual Exam- Adnexa, other: normal adnexae Neuro General: patient oriented x3 Assessment & Plan Assessment & Plan (1) IUD check up: Code(s): Z30.431 - Encounter for routine checking of intrauterine contraceptive device Plan Continue to observe bleeding, anticipatory guidance reviewed, report any abnormal patterns or concerns. Next visit for annual exam as scheduled. The patient expressed understanding and agreement with the plan of care. All of her questions and concerns were addressed to the best of my ability. This note is constructed using voice recognition software. While every effort has been made to ensure accuracy, pipefitter helper errors may have been included. Coding Level of Care Code Est Pt Level 2 (22383) Diagnoses IUD check up Z30.431
[2025-08-27 13:06] VITALS: BP 100/56
--- OUTSIDE RECORDS SUMMARY | 2025-08-27 16:32 | XMS_ITS | Data Portability ---
Author Organization [facility], [address] Address [address] [place] [address] Assessment No assessment recorded. Plan of Treatment Reminders Order Date Submit Date Provider Last Modified By Organization Details Last Modified Time Details Appointments None record ed. Lab None record ed. Referral None record ed. Procedures None record ed. Surgeries None record ed. Imaging None record ed. Medication Orders None record ed. Patient TargetsNo targets recorded. Patient InstructionsNo instructions recorded. Reason for Referral None Reported. Medical Equipment None Reported. Vitals None Recorded Social History None recorded. Functional Status None recorded. Mental Status None recorded. Family History Nothing Reported. Medical History No medical history recorded. Gynecological HistoryNo gynecological history recorded. Obstetrics History GPAL:G 0 P 0 0 0 0 Past Encounters Encounter ID Performer Location Encounter Start Date Encounter Closed Date Diagnosis/Indication Diagnosis SNOMED-CT Code Diagnosis ICD10 Code Diagnosis IMO Codes Diagnosis Note [id number] [facility] [address] [address] 05/07/2018 15:40:58 05/07/2018 16:10:[id number] [place] [address] [address] [address] 04/11/2018 16:33:05 04/11/2018 19:03:16 Health Concerns Section Related Observation LastModified by Organization Detai ls LastModified Time None Recorded Concern Status LastModified by Organization Details LastModified Time None Recorded Advance Directives Directive None Recorded Payers Insurance Date Sequence Insurance Name Policy Number Policy Batista Covered Member ID Batista Member ID Guarantor Name 09/28/2022 1 [facility] - HEALTH NET PLAN (MEDICAID HMO) [id number] No OBEpisode recorded.
== END 2025-08-27 13:27 | disposition home or self-care (01) ==
LOC: HO.HWS 12:55
PROVIDERS: PCP Internal Medicine; Visit Provider Advanced Practice Midwife
DX: Z30.431 Encounter for routine checking of intrauterine contraceptive device (principal)
CPT/HCPCS: 99212

== ENCOUNTER → 2025-08-27 12:55 | Outpatient (BNVA) | payer OTHER, SELFPAY | PROVIDERS: PCP Internal Medicine; Visit Provider Advanced Practice Midwife | DX: Z30.431 Encounter for routine checking of intrauterine contraceptive device (principal) | CPT/HCPCS: 99212 ==